=== PATIENT | female | born 1960 | race Caucasian/White ===

== ENCOUNTER → 2016-12-28 | Outpatient (CLI) | payer OTHER | END | disposition home or self-care (01) | LOC: CFH 13:21 | PROVIDERS: ATTEND Family Medicine | DX: N85.8 Other specified noninflammatory disorders of uterus (principal); R93.8 Abnormal findings on diagnostic imaging of other specified body structures | CPT/HCPCS: 76830 ==

== ENCOUNTER → 2017-02-15 | Outpatient (CLI) | payer OTHER ==
[~2017-02-15] MED LIST: ATEN25TA PO; HYDR12.53 PO
[2017-02-15 11:51] LABS: BLOOD UREA NITROGEN 14 mg/dL (7-18)
[2017-02-15 11:55] LABS: ASPARTATE AMINO TRANSFERASE 26 U/L (15-37)
== END | disposition home or self-care (01) ==
LOC: STAR 10:41
PROVIDERS: ATTEND Obstetrics & Gynecology Female Pelvic Medicine and Reconstructive Surgery
DX: Z01.818 Encounter for other preprocedural examination (principal); N84.0 Polyp of corpus uteri
CPT/HCPCS: 36415; 71020; 80053; 85025; 93005

== ENCOUNTER 2017-03-01 08:19 | Day surgery (SDC) | payer OTHER ==
[~2017-03-01] VITALS: Ht 162.6 cm; Wt 83.0 kg
[~2017-03-01 08:19] MED LIST changes: +BUPIVACAINE/PF-EPI 0.25% 1:200K ONE
[2017-03-01] MEDS ORDERED: LACTATED RINGERS 1,000 ML IV SCH ×2 (09:01→12:16)
[2017-03-01 09:02] VITALS: BP 138/89
[2017-03-01] MEDS ORDERED: FEXO1TAB25 PO (09:06)
[2017-03-01] MEDS ORDERED: LIDOCAINE 1%, 2ML SQ PRN (09:30)
[2017-03-01] MEDS ORDERED: FENTANYL PF 100 MCG/2ML ONE (09:39)
[2017-03-01] MEDS ORDERED: MIDAZOLAM 1 MG/ML, 2ML ONE (09:39)
[2017-03-01] MEDS ORDERED: KETOROLAC 30 MG/1 ML ONE (10:18)
[2017-03-01] MEDS ORDERED: DEXAMETHASONE 4 MG/ML, 1ML ONE (10:18)
[2017-03-01] MEDS ORDERED: PROPOFOL 10 MG/ML, 20ML ONE (10:18)
[2017-03-01] MEDS ORDERED: CEFAZOLIN 1,000 MG ONE (10:18)
[2017-03-01] MEDS ORDERED: ONDANSETRON 2MG/ML, 2ML ONE ×2 (10:18)
[2017-03-01] MEDS ORDERED: SILVER NITRATE STICK TP ONE (10:57)
[2017-03-01] MEDS ORDERED: ONDANSETRON 2MG/ML, 2ML IVPush PRN ×2 (11:00→12:30)
[2017-03-01] MEDS ORDERED: MIDAZOLAM 1 MG/ML, 2ML IV PRN (11:00)
[2017-03-01] MEDS ORDERED: MEPERIDINE/PF 25MG/0.5ML IVPush PRN (11:00)
[2017-03-01] MEDS ORDERED: METOCLOPRAMIDE 5 MG/ML, 2ML IV PRN (11:00)
[2017-03-01] MEDS ORDERED: HYDROmorphone 1 MG/ML, 1ML IV PRN (11:00)
[2017-03-01] MEDS ORDERED: FENTANYL PF 100 MCG/2ML IV PRN (11:00)
[2017-03-01] MEDS ORDERED: ACETAMINOPHEN 325 MG TABLET PO PRN (11:00)
[2017-03-01] MEDS ORDERED: PROMETHAZINE 25 MG/ML, 1ML IV PRN (11:00)
[2017-03-01] MEDS ORDERED: ALBUTEROL/IPRATROPIUM 2.5MG/0.5MG, 3 ML NPPB PRN (11:00)
[2017-03-01] MEDS ORDERED: LABETALOL 5MG/ML, 20ML IV PRN (11:00)
[2017-03-01] MEDS ORDERED: hydrALAzine 20 MG/ML, 1ML IV PRN (11:00)
[2017-03-01] MEDS ORDERED: OXYcodone 5 MG/5 ML ORAL.SOL UDC PO PRN (11:00)
[2017-03-01] MEDS ORDERED: MEPERIDINE/PF 25MG/0.5ML ONE (11:29)
[2017-03-01] MEDS ORDERED: IBUPROFEN 600 MG TABLET PO PRN (12:30)
[2017-03-01] MEDS ORDERED: PROMETHAZINE 25 MG SUPP PR ONE (12:30)
== END 2017-03-01 13:30 | disposition home or self-care (01) ==
LOC: OUT 08:19
PROVIDERS: ATTEND Obstetrics & Gynecology Female Pelvic Medicine and Reconstructive Surgery
DX: N92.6 Irregular menstruation, unspecified (principal); I10 Essential (primary) hypertension; E03.9 Hypothyroidism, unspecified; D64.9 Anemia, unspecified; Z87.19 Personal history of other diseases of the digestive system; Z90.49 Acquired absence of other specified parts of digestive tract; Z98.890 Other specified postprocedural states; Z88.6 Allergy status to analgesic agent; Z91.048 Other nonmedicinal substance allergy status
CPT/HCPCS: 58558; 88305; J0690; J1100; J1885; J2175; J2250; J2405; J2704; J3010; J7120

== ENCOUNTER → 2018-07-01 | Outpatient (CLI) | payer OTHER ==
[~2018-07-01] MED LIST changes: -BUPIVACAINE/PF-EPI 0.25% 1:200K ONE; +FEXO1TAB25 PO
== END | disposition home or self-care (01) ==
LOC: CFH 09:47
PROVIDERS: ATTEND Family Medicine
DX: Z12.31 Encounter for screening mammogram for malignant neoplasm of breast (principal)
CPT/HCPCS: 77063; 77067